=== PATIENT | female | born 1995 | race Caucasian/White ===

== ENCOUNTER 2018-09-15 13:28 | Emergency (ER) | payer OTHER, MEDICAID | END 2018-09-15 15:05 | disposition home or self-care (01) | LOC: FTE 13:28 | DX: R05 Cough (principal) | CPT/HCPCS: 71045; 99283-25 ==

== ENCOUNTER 2018-11-10 10:11 | Emergency (ER) | payer OTHER | END 2018-11-10 13:05 | disposition home or self-care (01) | LOC: FTE 10:11 | DX: J06.9 Acute upper respiratory infection, unspecified (principal) | CPT/HCPCS: 99282; Z7502 ==